=== PATIENT | female | born 1945 | race Caucasian/White ===

== ENCOUNTER → 2017-10-13 08:58 | Outpatient (CLI) | payer MEDICARE, OTHER, SELFPAY ==
--- NOTE | 2017-10-13 | DI.RAD.S_ITS ---
PROCEDURE: [place] WRIST INJECTION MR/CT LT INDICATIONS: left wrist pain TECHNIQUE: After informed consent had been obtained, the wrist was examined fluoroscopically, and a site chosen for injection of the radiocarpal compartment from a dorsal approach. Skin was prepped and draped in a sterile fashion and 1% lidocaine infiltrated from the skin down to the articular surface. A hypodermic needle was then introduced into the articular space and a modest amount of contrast medium was instilled confirming intra-articular needle tip placement. This was followed by approximately 4 mL of a dilute gadolinium solution. Needle was removed and dressing was applied. The patient experienced no complications throughout the procedure and left the fluoroscopic suite in no apparent distress. FINDINGS: A single fluoroscopic spot image demonstrates intra-articular location to injected iodinated contrast. IMPRESSION: Successful fluoroscopic-guided administration of dilute Gadolinium solution for wrist MR arthrogram. Dictated by: Jerod Johnson M.D. on 10/13/2017 at 10:13 Approved by: Jerod Johnson M.D. on 10/13/2017 at 10:14
--- NOTE | 2017-10-13 | DI.MRI.S_ITS ---
PROCEDURE: MR WRIST LT W CON INDICATIONS: left wrist pain TECHNIQUE: After the administration of 3-4 mL of dilute intra-articular Gadolinium contrast into the radiocarpal compartment, coronal T1 spin echo with fat saturation and T2 fast spin echo with fat saturation, axial T1 spin echo and T2 fast spin echo with fat saturation, sagittal T1 spin echo with and without fat saturation through the wrist. COMPARISON: [facility] Outside Film, CR, XR WRIST 3+ VIEWS LEFT, 09/29/2017, 12:13. [facility], , [place] WRIST INJECTION MR/CT LT, 10/13/2017, 9:38. FINDINGS: Image quality: Excellent. Bones and cartilage: No fracture identified. T2 hyperintense probable cystic lesion involving the first metacarpal although technically indeterminate the absence of IV contrast enhanced images. First CMC joint degeneration. Carpal ligaments: The scapholunate ligament appears intact however there is gadolinium contrast material extravasation of the midcarpal compartment, and the lunotriquetral ligament is not well-visualized, presumably ruptured. The radioscaphocapitate and radiolunotriquetral ligaments appear intact. The arcuate ligament and short radiolunate ligament also appear normal. The dorsal intercarpal and radiotriquetral ligaments appear intact. On sagittal images, the pisohamate ligament appears intact. Triangular fibrocartilage complex: There is discontinuity within the central disc and radial attachment of the TFCC compatible with full thickness tear. There is associated leakage of gadolinium contrast material into the distal radioulnar joint. There is mild diffuse loss of the distal radial and lunate articular cartilage without focal defect. No definite intrasubstance gadolinium signal intensity seen within the meniscal homolog. The ulnar collateral ligament appears intact although may be mildly thickened. The extensor carpi ulnaris tendon is normal in location and morphology. Tendons and soft tissues: The carpal tunnel structures appear normal, including the median nerve. The ulnar nerve appears normal within Guyon's canal. All six extensor tendon compartments demonstrate normal morphology, without pathologic tendon sheath fluid. No soft tissue ganglion cysts. IMPRESSION: TFCC tear which includes the junction of the central disc and radial component as well as the lunotriquetral ligament. Mild radiocarpal compartment degenerative changes as above. Presumed cystic (versus solid or myxoid T2 hyperintense) lesion involving the first metacarpal which is technically incompletely evaluated in the absence of IV contrast enhanced pulse sequences. This lesion is technically nonspecific and if clinically warranted, contrast-enhanced MRI could be performed and/or bone scan. Alternatively, continued long-term surveillance with radiographs could be performed. Recommend clinical correlation First CMC joint degeneration Dictated by: Hilario Avalos M.D. on 10/13/2017 at 11:00 Approved by: Hilario Avalos M.D. on 10/13/2017 at 11:19
== END ==
PROVIDERS: Visit Provider Orthopaedic Surgery
DX: M25.532 Pain in left wrist (principal); S63.592A Other specified sprain of left wrist, initial encounter
CPT/HCPCS: 20605; 73222; 76000

== ENCOUNTER → 2017-12-15 11:10 | Outpatient (CLI) | payer MEDICARE, OTHER, SELFPAY ==
--- NOTE | 2017-12-15 | DI.CT.S_ITS ---
PROCEDURE: CT SINUS SCREEN WO CON INDICATIONS: CHRONIC SINUSITIS TECHNIQUE: Noncontrast 3.0 mm axial images acquired from the frontal sinuses to the mid-sella, with coronal and sagittal reformats. For radiation dose reduction, the following was used: automated exposure control, adjustment of mA and/or kV according to patient size. COMPARISON: None. FINDINGS: Image quality: Excellent. Maxillary Sinuses: No bony remodeling or destruction. Sinuses are clear. Ethmoid Air Cells: No bony remodeling or destruction. Sinuses are clear. Sphenoid Sinuses: No bony remodeling or destruction. Sinuses are clear. Frontal Sinuses: No bony remodeling or destruction. Sinuses are clear. Ostiomeatal Complexes: Ostiomeatal complexes are patent. No Thuy cells. Miscellaneous: Visualized intra-orbital contents are normal. No kin bullosa or paradoxical turbinate curvature. There is minimal leftward nasal septal deviation. IMPRESSION: No active paranasal sinus disease is seen. Dictated by: Figueroa Vo M.D. on 12/15/2017 at 11:27 Approved by: Figueroa Vo M.D. on 12/15/2017 at 11:27
== END ==
PROVIDERS: Visit Provider Otolaryngology
DX: J32.9 Chronic sinusitis, unspecified (principal)
CPT/HCPCS: 70486

== ENCOUNTER → 2018-10-01 10:40 | Outpatient (CLI) | payer MEDICARE, OTHER, SELFPAY ==
--- NOTE | 2018-10-01 | DI.US.S_ITS ---
PROCEDURE: US PELVIC COMPLETE INDICATIONS: PELVIC AND PERINEAL PAIN TECHNIQUE: Real-time scanning was performed of the pelvic organs, with image documentation. Additional endovaginal scanning was necessary due to incomplete visualization of the adnexal and endometrial structures by transabdominal scanning. COMPARISON: None. FINDINGS: Transabdominal scanning: Limited scanning through the kidneys shows no hydronephrosis. Small left renal cyst. No pathologic free abdominal or pelvic fluid. Endovaginal scanning: Uterus: Uterus is atrophied in size at 4.6 x 2.1 x 2.7 cm. The endometrium measures 3.0 mm in combined thickness. Trace endometrial fluid. Ovaries: Normal ovaries bilaterally measuring 1.8 x 0.7 x 1.1 cm on the right and 1.4 x 0.6 x 0.9 cm on the left. No adnexal masses. IMPRESSION: No source for the discomfort identified. Dictated by: Silvano TAVARES Interpreted: Elizabeth Shaikh MD on 10/01/2018 at 11:34 Approved by: Elizabeth Shaikh M.D. on 10/01/2018 at 14:46
== END ==
PROVIDERS: PCP Internal Medicine; Visit Provider Urology
DX: R10.2 Pelvic and perineal pain (principal)
CPT/HCPCS: 76830; 76856